=== PATIENT | male | born 1950 | race Caucasian/White ===

== ENCOUNTER 2017-02-07 11:44 | Emergency (ER) | payer BC, MEDICARE ==
[~2017-02-07] VITALS: Ht 172.7 cm; Wt 79.4 kg
[2017-02-07] MEDS ORDERED: KETOROLAC TROMETHAMINE 30 MG INJ IM ONE (12:15)
[2017-02-07] MEDS ORDERED: HYDROCODONE/APAP 5-325MG TABLET PO ONE (12:15)
[2017-02-07] MEDS ORDERED: KETOROLAC TROMETHAMINE 30 MG INJ ONE (12:22)
[2017-02-07] MEDS ORDERED: HYDROCODONE/APAP 5-325MG TABLET ONE (12:23)
--- NOTE | 2017-02-07 13:16 | NUR ---
MSE COMPLETED, PT D/C'D HOME, SLING/ACI/RX X1 GIVEN TO PT. PT AMBULATED W/O DIFF/TOOK ALL BELONGINGS.
[2017-02-07 13:18] VITALS: BP 112/62
== END 2017-02-07 13:18 | disposition home or self-care (01) ==
LOC: ER 11:44
DX: M75.91 Shoulder lesion, unspecified, right shoulder (principal); E11.9 Type 2 diabetes mellitus without complications
CPT/HCPCS: 73030; 96372; 99284; A4663; J1885